=== PATIENT | male | born 1995 | race Caucasian/White ===

== ENCOUNTER 2017-06-25 12:23 | Outpatient (CLI) | payer OTHER | END 2017-06-25 12:24 | disposition home or self-care (01) | LOC: BICRAD 12:23 | PROVIDERS: ATTEND Family Medicine | DX: S63.502A Unspecified sprain of left wrist, initial encounter (principal) ==

== ENCOUNTER 2018-03-27 10:37 | Day surgery (SDC) | payer OTHER ==
[2018-03-27] MEDS ORDERED: CEFAZOLIN 2 GM/50 ML BAG ONE (11:19)
[2018-03-27] MEDS ORDERED: Midazolam HCl 2 mg/2 ml Vial ONE (13:46)
[2018-03-27] MEDS ORDERED: Bacitracin Zinc Ointment 30 gm TUBE ONE (14:06)
[2018-03-27] MEDS ORDERED: Bupivacaine 0.25% HCL 30 ML VIAL ONE (14:06)
[2018-03-27] MEDS ORDERED: Fentanyl 100 MCG/2 ML VIAL ONE (14:13)
[2018-03-27] MEDS ORDERED: HYDROcodone/Acetaminophen 5/325 mg Tablet ONE (16:02)
[2018-03-27 16:40] LABS: Anion Gap 10 mmol/L (10-20); BUN (Urea Nitrogen) 13 mg/dL (8.9-20.6); Calc. Creatinine Clearance 0 mL/min (70-130); Calcium 9.5 mg/dL (7.8-10.44); Carbon Dioxide 28 mmol/L (22-29); Chloride 104 mmol/L (98-107); Estimated GFR-MDRD Greater than 90; Glucose 87 mg/dL (70-105); Potassium 4.2 mmol/L (3.5-5.1); Sodium 138 mmol/L (136-145)
[2018-03-27 16:43] LABS: Eosinophils 1 % (0-10); Hemoglobin 13.1 g/dL (14.0-18.0); Lymphocytes 31 % (21-51); MDiff Complete? YES; Mean Corpuscular HGB CONC 34.6 g/dL (32.0-36.0); Mean Corpuscular Hemoglobin 32.6 pg (27.0-31.0); Mean Corpuscular Volume 94.2 fL (78.0-98.0); Mean Platelet Volume 10.5 fL (7.4-10.4); Monocytes 9 % (0-10); Neutrophil 59 % (42-75); PLT Morphology Comment PLT clumps seen-ADEQ; RBC Distribution Width 11.3 % (11.5-14.5); Red Blood Cell (RBC) Count 4.01 mill/uL (4.70-6.10); White Blood Cell (WBC) Count 5.8 thou/uL (4.8-10.8)
[2018-03-27] MEDS ORDERED: Dexamethasone 20 MG/5 ML VIAL ONE (18:21)
[2018-03-27] MEDS ORDERED: Lidocaine 1% PF 5 ML VIAL ONE (18:21)
[2018-03-27] MEDS ORDERED: Ondansetron PF 4 MG/2 ML Vial ONE ×2 (18:21)
--- NOTE | 2018-03-28 01:28 | OP ---
DATE OF PROCEDURE: 03/27/2018 PREOPERATIVE DIAGNOSIS: Meatal stenosis. POSTOPERATIVE DIAGNOSIS: Meatal stenosis. PROCEDURE PERFORMED: Meatotomy and cystoscopy. ANESTHESIA: General with laryngeal mask airway, as well as a penile block using 10 mL of 0.25% Marcaine. COMPLICATIONS: No complications. SPECIMENS: No specimen. DRAINS: No drain remaining. FINDINGS: Significant meatal stenosis. No other stricture. INDICATIONS FOR PROCEDURE: The patient is a 22-year-old male who was seen in the office with worsening urinary symptoms; however, he was still emptying adequately, but his meatus could not even properly identify an opening, so he was set up for meatotomy. DESCRIPTION OF PROCEDURE: The patient was brought into the room by Anesthesia and laid on the table in supine position. After receiving general anesthetic, his legs were placed in lithotomy position and his perineum was prepped and draped in sterile fashion. Using a SNAP with both components of the device closed, there was not enough of an opening, so with one end of the SNAP, it was able to gain access into the meatus and then carefully increased this to both portions of the SNAP and then this was used to crush a portion of the scarred meatus and remove a small portion of the skin in the intermediary components as the SNAP was used in a V-fashion removing the middle portion with tenotomy scissors. This was taken all the way down until the 22-[place] cystoscope could gain access, so ultimately this had to be opened to proximally the preston before the scope would be accommodated and then I was able to get the 22-[place] cystoscope through the meatus and all the way into his bladder without difficulty. There were no other abnormalities noted other than at the meatus. So, at this point, the scope was removed and attention was turned back to the meatus where the mucosal edges were sewn to the skin edges of the glans using 4-0 Monocryl in interrupted fashion and then bacitracin was applied. The patient tolerated the procedure well and was then awakened and transferred to PACU in stable condition. Job ID: [id number]
== END 2018-03-27 16:51 | disposition home or self-care (01) ==
LOC: SDC 10:37
PROVIDERS: ATTEND Urology
PROC: 0T7D0ZZ Dilation of Urethra, Open Approach (ICD-10-PCS; principal; 2018-03-27)
DX: N35.911 Unspecified urethral stricture, male, meatal (principal); Q54.8 Other hypospadias; F90.9 Attention-deficit hyperactivity disorder, unspecified type; Z79.899 Other long term (current) drug therapy
CPT/HCPCS: 80048; 85025; J1100; J2001; J2250; J2405; J3010; S0020

== ENCOUNTER 2018-11-13 08:09 | Outpatient (CLI) | payer OTHER ==
--- NOTE | 2018-11-13 08:51 | ULT ---
EXAM: US Abdominal CLINICAL HISTORY: Elevated liver function. COMPARISON: None. FINDINGS: Pancreas: Visualized pancreatic parenchyma has a normal echotexture IVC: Unremarkable Aorta: Unremarkable Liver:Normal echotexture. No hepatic masses or intrahepatic biliary dilatation. Right hepatic lobe me asures 15.1 cm Gallbladder: No sonographic evidence of cholelithiasis, gallbladder wall thickening or pericholecysti c fluid. Epperson's sign:Negative CBD: Suboptimal evaluation the common bile duct. Portal vein: Main portal vein is patent. Appropriate directional flow Right kidney: No hydronephrosis Right kidney measuring 10 cm in length. Left kidney: No hydronephrosis. Left kidney measuring 9.8 cm in length Spleen: 9.9 cm in length. Normal echotexture. IMPRESSION: 1. No hydronephrosis 2. No sonographic evidence of cholecystitis. 3. Suboptimal evaluation the common bile duct. MRCP/ERCP if clinically warranted
== END 2018-11-13 08:10 | disposition home or self-care (01) ==
LOC: BICULT 08:09
PROVIDERS: ATTEND Family Medicine
DX: R74.0 Nonspecific elevation of levels of transaminase and lactic acid dehydrogenase [LDH] (principal)
CPT/HCPCS: 76700